=== PATIENT | male | born 1985 | race Caucasian/White ===

== ENCOUNTER 2018-01-01 12:20 | Emergency (ER) | payer SELFPAY ==
[2018-01-01 12:58] VITALS: BP 148/83; PULSE 86; TEMP 98.6; BMI 26.2
[2018-01-01] MEDS ORDERED: IBUPROFEN 600 MG TABLET (FP) PO ONE (13:01)
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
[2018-01-01] MEDS ORDERED: IBUPROFEN 400 MG TABLET (FP) PO ONE (13:42)
== END 2018-01-01 14:45 | disposition home or self-care (01) ==
LOC: FER 12:20
DX: S09.90XA Unspecified injury of head, initial encounter (principal); S00.83XA Contusion of other part of head, initial encounter; H11.31 Conjunctival hemorrhage, right eye; W50.0XXA Accidental hit or strike by another person, initial encounter; Y93.89 Activity, other specified; Y92.410 Unspecified street and highway as the place of occurrence of the external cause; F17.210 Nicotine dependence, cigarettes, uncomplicated
CPT/HCPCS: 70450-TC; 70486-TC; 72125-TC; 99283-25